=== PATIENT | male | born 1995 | race African-American/Black ===

== ENCOUNTER 2019-12-02 21:59 | Emergency (ER) | payer OTHER ==
[~2019-12-02] VITALS: Ht 180.3 cm; Wt 69.7 kg
--- NOTE | 2019-12-02 22:28 | NUR ---
ASSUMED CARE OF PATIENT. PATIENT C/O GENERALIZED ABD PAIN. VS STABLE. PT DENIES N/V. PT SEEN BY DR BRIDGES. PT REPORTS THAT HE DOES NOT WANT HIS LABS DRAWN.
--- NOTE | 2019-12-02 22:29 | NUR ---
DR BRIDGES IN ROOM TALKING WITH PATIENT.
[2019-12-02 22:48] VITALS: BP 119/75
== END 2019-12-02 22:56 | disposition home or self-care (01) ==
LOC: ED 22:43
DX: R10.84 Generalized abdominal pain (principal); R19.7 Diarrhea, unspecified; F12.10 Cannabis abuse, uncomplicated; Z72.89 Other problems related to lifestyle
CPT/HCPCS: 99283

== ENCOUNTER 2019-12-05 21:46 | Emergency (ER) | payer OTHER ==
[~2019-12-05] VITALS: Ht 180.3 cm; Wt 70.9 kg
[2019-12-05 21:54] VITALS: BP 125/83
[2019-12-05] MEDS ORDERED: ALBUTEROL/IPRATROPIUM 2.5MG/0.5MG, 3 ML ONE (22:51)
--- NOTE | 2019-12-05 22:54 | NUR ---
RT AT BEDSIDE
[2019-12-05] MEDS ORDERED: ALBUTEROL/IPRATROPIUM 2.5MG/0.5MG, 3 ML NPPB ONE (23:00)
[2019-12-05 23:03] LABS: RAPID INFLUENZA A Negative (Negative); RAPID INFLUENZA B Negative (Negative)
== END 2019-12-05 23:24 | disposition home or self-care (01) ==
LOC: ED 22:41
DX: J20.9 Acute bronchitis, unspecified (principal); J06.9 Acute upper respiratory infection, unspecified
CPT/HCPCS: 71046; 87400; 94640; 99283